=== PATIENT | male | born 1955 | race Caucasian/White ===

== ENCOUNTER 2016-11-19 10:05 | Inpatient (IN) | payer BC ==
[~2016-11-19 10:05] MED LIST: ALEVE220 M3 PO; ASPIRIN81 M1 PO; ATORVASTATIN CA20 M1 PO; CPAP
[2016-11-19 11:15] LABS: INR 0.9 INR (0.9-1.1); PROTHROMBIN TIME 10.9 SECONDS (9.0-13.6)
--- NOTE | 2016-11-19 18:12 | NUR ---
1730 HEMOVAC TIP INTACT PER INSTRUCTOR
[2016-11-20 05:24] LABS: BASO % 0.2 % (0-2); EOS % 1.3 % (0-7); EOSINOPHIL ABSOLUTE COUNT 0.1 tho/cmm (0.0-0.7); HCT-HEMATOCRIT 36.2 % (36.0-53.5); HGB-HEMOGLOBIN 11.8 gm/dl (13.5-17.0); IMMATURE GRANULOCYTES ABSOLUTE 0.02 tho/cmm (0-0.03); IMMATURE GRANULOCYTES PERCENT 0.2 % (0-0.3); LYMPH % 17.4 % (20-45); LYMPH ABSOLUTE COUNT 1.6 tho/cmm (0.8-4.5); MCH (MEAN CORPUSCULAR HGB) 26.8 pg (28.0-32.0); MCHC MEAN CORPUSCULAR HGB CONC 32.6 % (32.0-36.0); MCV (MEAN CELL VOLUME) 82.3 fl (82.0-96.0); MONO % 12.5 % (0-12); MONOCYTE ABSOLUTE COUNT 1.2 tho/cmm (0.0-1.2); NEUTROPHIL ABSOLUTE COUNT 6.3 tho/cmm (1.6-8.0); NEUTROPHIL-AUTOMATED 6.3 tho/cmm (1.6-8.0); NEUTROPHILS % 68.4 % (40-80); PLATELET COUNT 188 tho/cmm (150-450); RED CELL DISTRIBUTION WIDTH 14.6 % (12.4-16.4); WHITE BLOOD COUNT 9.2 tho/cmm (4.0-10.0)
[2016-11-20 05:31] LABS: ANION GAP 9 mmol/L (0-20); BLOOD UREA NITROGEN 14 mg/dl (6-24); CARBON DIOXIDE-VENOUS 29 mmol/L (22-32); CHLORIDE 105 mmol/l (96-110); CREATININE 0.81 mg/dl (0.60-1.30); GLUCOSE 111 mg/dL (70-110); POTASSIUM 4.3 mmol/L (3.7-5.1); SODIUM 139 mmol/L (135-145); eGFR VALUE FOR BLACK >90 mL/Min
[2016-11-22] MEDS ORDERED: ASPIRIN81 M1 PO (10:34)
[2016-11-22] MEDS ORDERED: TYLENOL325 M2 PO (10:35)
[2016-11-22] MEDS ORDERED: MOBIC7.5 M2 PO (10:36)
[2016-11-22] MEDS ORDERED: ULTRAM50 M1 PO (10:37)
[2016-11-22] MEDS ORDERED: OXYCODONE HCL5 M1 PO (10:39)
[2016-11-22] MEDS ORDERED: MIRALAX17 G2 PO (10:44)
[2016-11-22] MEDS ORDERED: ZOFRAN4 M2 PO (10:45)
== END 2016-11-22 12:18 | DRG 470 ==
LOC: SHSB 10:05 → ORE 11:10 → PACU 13:13 → 5EA 13:44
PROVIDERS: Family Medicine; Physician Assistant; ADMIT Orthopaedic Surgery Foot and Ankle Surgery
PROC: 0SRD0J9 Replacement of Left Knee Joint with Synthetic Substitute, Cemented, Open Approach (ICD-10-PCS; principal; 2016-11-19)
PROC: 5A09357 Assistance with Respiratory Ventilation, Less than 24 Consecutive Hours, Continuous Positive Airway Pressure (ICD-10-PCS; 2016-11-19)
DX: M17.12 Unilateral primary osteoarthritis, left knee (principal); E78.5 Hyperlipidemia, unspecified; G47.33 Obstructive sleep apnea (adult) (pediatric); N40.0 Benign prostatic hyperplasia without lower urinary tract symptoms
CPT/HCPCS: C1713; C1776; J0171; J0690; J1885; J2270; J2795